=== PATIENT | female | born 1965 | race Caucasian/White ===

== ENCOUNTER → 2020-10-23 10:46 | Outpatient (CLI) | payer OTHER, SELFPAY ==
[2020-10-23 12:42] LABS: Vitamin D,25 Hydroxy 25.6 ng/mL
[2020-10-23 12:44] LABS: AST(SGOT) 16 U/L (15-37); Alanine Aminotransfer ALT/SGPT 23 U/L (13-56); Anion Gap 4 (5-15); BUN 10 mg/dL (7-18); Calcium,Total 8.7 mg/dL (8.5-10.1); Chloride 107 mmol/L (98-107); Cholesterol 206 mg/dL (200); Creatinine, Serum 0.71 mg/dL (0.55-1.02); EST Glomerular Filtration Rate 90 mL/min (>60); Est Glom Filt Rate - Afr Amer 109 mL/min (>60); Glucose 82 mg/dL (74-106); High Density Lipoprotein 62 mg/dL; Potassium 3.8 mmol/L (3.5-5.1); Sodium Level 139 mmol/L (136-145); Triglycerides 86 mg/dL; Very Low Density Lipoprotein 17 mg/dL (5-40)
== END ==
PROVIDERS: PCP Family Medicine; Referring Provider Family Medicine; Visit Provider Family Medicine
DX: E78.00 Pure hypercholesterolemia, unspecified (principal); E55.9 Vitamin D deficiency, unspecified
CPT/HCPCS: 36415; 80048; 80061; 82306; 84450; 84460

== ENCOUNTER → 2020-11-11 15:13 | Outpatient (CLI) | payer OTHER, SELFPAY ==
--- NOTE | 2020-11-11 15:16 | BI_ITS ---
MAMMOGRAPHY - BILATERAL SCREENING 3-D TOMOSYNTHESIS REASON FOR EXAM: Female, 55 years old. Routine screening PERTINENT HISTORY: Aunt with breast cancer.. TECHNIQUE: 2-D mammograms and 3-D Tomosynthesis of the breast (s) were performed. CAD was performed. COMPARISON: 06/25/2016 FINDINGS: The breast composition is heterogeneously dense that can obscure small breast masses. Scattered benign calcifications are seen. No dense spiculated masses or suspicious microcalcifications are identified. No architectural distortion is identified. There is no skin thickening or retraction. There has been no significant change since the prior study. BI/SCREENING MAMM (CAD), BILAT IMPRESSION: No mammographic signs of malignancy. Routine yearly mammograms recommended. ASSESSMENT CATEGORY: BIRADS Category 2: Benign. A letter regarding these results will be sent to the patient by the facility within 30 days. FOLLOW UP RECOMMENDATION: Yearly follow up mammogram recommended. (A) Approximately 10% of breast cancers are not detected by mammography. A normal mammogram should not delay biopsy of a clinically suspicious abnormality. Electronically Signed: Chucho Lance MD at 7:48 EDT , Service support ,
--- NOTE | 2020-11-11 15:21 | BD_ITS ---
STUDY: DUAL ENERGY X-RAY ABSORPTIOMETRY / DXA REASON FOR EXAM: Female, 55 years old. [id number] TECHNIQUE: Bone Mineral Density (BMD) measurements of lumbar spine and bilateral hips were obtained. COMPARISON: 05/14/2014 FINDINGS: Lumbar Spine (L1-L4): g/cm2 (0.829) / T-score (-3.1) / Z-score (-2.1) Findings are suggestive of osteoporosis with a high fracture risk. Left Femur Total: g/cm2 (0.825) / T-score (-1.4) / Z-score (-0.7) Left Femoral Neck: g/cm2 (0.817) / T-score (-1.6) / Z-score (-0.5) Right Femur Total: g/cm2 (0.811) / T-score (-1.6) / Z-score (-0.8) Right Femoral Neck: g/cm2 (0.827) / T-score (-1.5) / Z-score (-0.4) BD/Dexa Bone Density Study IMPRESSION: The patient is considered osteoporotic as outlined below according to World [employer] Organization (WHO) criteria with a high fracture risk. There has been worsening of bone density since the previous examination. Reference Information: The T-score is the number of standard deviations above or below the standard which is normal for young adults at their peak bone mineral density. The World Health Organization (WHO) interprets the T-scores as follows: Above -1 Normal bone density Between -1 and -2.5 Osteopenia Equal to / or below -2.5 Osteoporosis As a practical clinical guideline, osteopenia may be graded as follows: Mild -1 through -1.5 Moderate -1.6 through -2.0 Severe -2.1 through -2.4 The Z-score is the number of standard deviations above or below age-matched controls. A Z-score of less than -1.5 would be considered abnormal. References: 1. NIH Osteoporosis and Related Bone Diseases www osteo.org 2. International Society for Clinical Densitometry www iscd.org 3. National Osteoporosis Foundation www nof.org Electronically Signed: Mir Gaines MD at 8:48 EDT Tel , Service support ,
== END ==
PROVIDERS: PCP Family Medicine; Referring Provider Family Medicine; Visit Provider Family Medicine
DX: Z00.00 Encounter for general adult medical examination without abnormal findings (principal); N95.9 Unspecified menopausal and perimenopausal disorder; Z12.31 Encounter for screening mammogram for malignant neoplasm of breast
CPT/HCPCS: 77067; 77080

== ENCOUNTER → 2021-05-26 | Outpatient (CLI) | payer OTHER, SELFPAY ==
[2021-05-28 12:50] LABS: HPV Reflexed? NOT INDICATED
== END | disposition home or self-care (01) ==
LOC: LABSPEC 10:27
PROVIDERS: PCP Family Medicine; Referring Provider Family Medicine; Visit Provider Family Medicine
DX: Z12.4 Encounter for screening for malignant neoplasm of cervix (principal)
CPT/HCPCS: 88175; G0145

== ENCOUNTER → 2022-04-13 | Outpatient (CLI) | payer BC, SELFPAY ==
[2022-04-13 13:17] LABS: Vitamin D,25 Hydroxy 32.4 ng/mL
[2022-04-13 13:18] LABS: Cholesterol 211 mg/dL (200); High Density Lipoprotein 63 mg/dL; Triglycerides 66 mg/dL; Very Low Density Lipoprotein 13 mg/dL (5-40)
== END | disposition home or self-care (01) ==
LOC: MFPLAB 10:25
PROVIDERS: PCP Family Medicine; Referring Provider Family Medicine; Visit Provider Family Medicine
DX: E78.00 Pure hypercholesterolemia, unspecified (principal); E55.9 Vitamin D deficiency, unspecified
CPT/HCPCS: 36415; 80061; 82306

== ENCOUNTER 2022-05-27 14:30 | Outpatient (CLI) | payer BC, SELFPAY ==
--- NOTE | 2022-05-27 14:33 | BI_ITS ---
MAMMOGRAPHY - BILATERAL SCREENING REASON FOR EXAM: Female, 57 years old. Routine annual screening examination. PERTINENT HISTORY: Aunt with breast cancer. TECHNIQUE: Digital bilateral breast adenike (3D mammographic acquisition) in the CC and MLO projections. 2-D mediolateral oblique (MLO) and craniocaudad (CC) views of both breasts were obtained. CAD: Full Field Digital Mammography with Computer Added Detection was performed. COMPARISON: Comparison is made with prior examination dated 11/11/2020 and 06/25/2016. FINDINGS: Breast Composition: The breasts are heterogeneously dense, which may obscure small masses. 2 well-defined nodular densities are seen in the mid medial aspect of the right breast. The larger measures 6.8 mm x 5.8 mm. Correlation with ultrasound is recommended. No other significant abnormalities are identified. BI/SCRN MAMM (CAD)W/ADENIKE BILAT IMPRESSION: 2 well-defined nodular densities are seen in the mid medial aspect of the right breast. Correlation with ultrasound is recommended. ASSESSMENT CATEGORY: BIRADS Category 0: Incomplete. Need additional imaging evaluation. A letter regarding these results will be sent to the patient by the facility within 30 days. Approximately 10% of breast cancers are not detected by mammography. A normal mammogram should not delay biopsy of a clinically suspicious abnormality. [id number] Electronically Signed: Destin Coffman MD at 8:34 EST ,
== END 2022-05-27 23:59 | disposition home or self-care (01) ==
LOC: OPBI 14:31
PROVIDERS: PCP Family Medicine; Referring Provider Family Medicine; Visit Provider Family Medicine
DX: Z00.00 Encounter for general adult medical examination without abnormal findings (principal); Z80.3 Family history of malignant neoplasm of breast; Z12.31 Encounter for screening mammogram for malignant neoplasm of breast
CPT/HCPCS: 77063; 77067

== ENCOUNTER → 2022-06-03 | Outpatient (CLI) | payer BC, SELFPAY ==
--- NOTE | 2022-06-03 14:54 | US_ITS ---
STUDY: ULTRASOUND BREAST - RIGHT REASON FOR EXAM: Female, 57 years old. Abnormal screening mammogram. TECHNIQUE: Axial and longitudinal images of the RIGHT breast were performed with a high resolution ultrasound transducer. # OF IMAGES: 10 COMPARISON: Comparison is made with prior mammogram dated 05/27/2022. FINDINGS: RIGHT Breast: The mid medial aspect of the right breast was examined with ultrasound. There is an 8 mm x 8 mm x 5 mm cyst. There is also evidence of a 7 mm x 5 mm x 4 mm cyst at the 4 o''clock position of the breast. US/Breast Limited Unilateral IMPRESSION: Mammographic findings correspond to 2 adjacent subcentimeter cysts. ASSESSMENT CATEGORY: BIRADS Category 2: Benign. A letter regarding these results will be sent to the patient by the facility within 30 days. Electronically Signed: Destin Coffman MD at 12:25 EST ,
== END | disposition home or self-care (01) ==
LOC: OPUS 14:52
PROVIDERS: PCP Family Medicine; Visit Provider Family Medicine
DX: R92.8 Other abnormal and inconclusive findings on diagnostic imaging of breast (principal)
CPT/HCPCS: 76642

== ENCOUNTER → 2023-08-16 | Outpatient (CLI) | payer BC, SELFPAY ==
--- NOTE | 2023-08-16 07:58 | BI_ITS ---
MAMMOGRAPHY - BILATERAL SCREENING REASON FOR EXAM: Female, 58 years old. Routine annual screening examination. PERTINENT HISTORY: Aunt with breast cancer. TECHNIQUE: Digital bilateral breast adenike (3D mammographic acquisition) in the CC and MLO projections. 2-D mediolateral oblique (MLO) and craniocaudad (CC) views of both breasts were obtained. CAD: Full Field Digital Mammography with Computer Added Detection was performed. COMPARISON: Comparison is made with prior study dated May 27, 2022 and November 11, 2020. FINDINGS: Breast Composition: The breasts are heterogeneously dense, which may obscure small masses. There are no dominant masses or suspicious calcifications. No other significant abnormalities are identified. There has been no significant change since the prior study. BI/SCRN MAMM (CAD)W/ADENIKE BILAT IMPRESSION: Stable bilateral screening mammogram. Yearly follow-up mammogram recommended. (A) ASSESSMENT CATEGORY: BIRADS Category 1: Negative. A letter regarding these results will be sent to the patient by the facility within 30 days. Approximately 10% of breast cancers are not detected by mammography. A normal mammogram should not delay biopsy of a clinically suspicious abnormality. [id number] Electronically Signed: Destin Coffman MD at 9:12 EST ,
== END | disposition home or self-care (01) ==
LOC: OPBI 07:58
PROVIDERS: PCP Family Medicine; Referring Provider Family Medicine; Visit Provider Family Medicine
DX: Z12.31 Encounter for screening mammogram for malignant neoplasm of breast (principal); Z80.3 Family history of malignant neoplasm of breast
CPT/HCPCS: 77063; 77067

== ENCOUNTER 2023-12-06 05:33 | Day surgery (SDC) | payer BC, SELFPAY ==
--- NOTE | 2023-12-06 | COLBX_PTH ---
PATIENT: ZHANE DUNN LOC: EN U#:[id number] AGE/SX: 58/F ROOM: RE12/06/[address]: Dr. Jadiel Cook MD : 1965 BED: DIS: 12/06/2023 SPEC #: [id number] RECD: 12/06/23 12:55 STATUS: DAVID HAYES #: [id number] MICKY: 12/06/23 00:[address]: Jadiel Cook DEPT: SURGICAL PATHOLOGY RECD BY: Bernardo Lassiter ENTERED: 12/06/23 12:55 SP TYPE: COLON BX OTHR DR: Dr. Anisha Castillo MD Tissues: Rectum, NOS Procedures: Surgery Specimen Level IV HEADER OPERATION: Colonoscopy, biopsy PRE-OP DIAGNOSIS: Encounter for screening for malignant neoplasm of colon TISSUE SUBMITTED: Proximal rectum polyps x3 MICROSCOPIC DIAGNOSIS Rectal polyps, biopsy: Fragments of hyperplastic polyp. AM/mr 12/07/2023 MICROSCOPIC DESCRIPTION Slides are reviewed. GROSS DESCRIPTION Received in fixative is one container labeled with the patient's name and designated Proximal rectum polyp x3. The specimen consists of multiple irregular fragments of light mallory soft tissue that in aggregate measure 1.0 x 0.4 x 0.1 cm. The specimen is totally submitted in one cassette. ENZO/ 12/06/2023 TC:5 CPT:84238
[2023-12-06 06:01] VITALS: BP 110/71; PULSE 78; RESP 16; TEMP 36.3; O2SAT 99; BMI 21.9
[2023-12-06] MEDS: Lactated Ringers 1,000 ML 15 ML IV (06:04)
--- NOTE | 2023-12-06 06:21 | HP.PCM_ITS ---
HPI - General General Date of Service: 12/06/23 Chief Complaint: Screening for intestinal cancer HPI Narrative ZHANE DUNN, is a 58 F who presents who presents via open access today. Previous colonoscopy was 2013. She is asymptomatic. She otherwise enjoys good health. No family history of colon cancer or colon polyps. She denies any bright red blood per rectum or melena. COUNT INCLUDES THE [facility] Medical History (Updated 11/30/23 @ 13:59 by Bernie Okeefe) Wears contact lenses Wears glasses Anxiety Depression Non-smoker Hypercholesterolemia Panic disorder Osteoporosis Home Medications ?Medication ?Instructions ?Recorded ?Last Taken ?Type bupropion HCl 150 mg 24 hr tablet, 300 mg PO QAM 11/28/23 Unknown History extended release calcium carbonate 500 mg-vitamin 2 tab PO BID 11/28/23 Unknown History D3 200 unit-vitamin K2 90 mcg tablet coenzyme Q10 10 mg capsule 10 mg PO ONCE 11/28/23 Unknown History cyanocobalamin (vitamin B-12) 3 ml PO DAILY 11/28/23 Unknown History 1,000 mcg/mL oral drops (Vitamin B-12) Lactobacillus acidophilus 10 10,000 mmu cells PO DAILY 11/30/23 Unknown History billion cell capsule (Probacap) magnesium 200 mg tablet 400 mg PO QHS 11/30/23 Unknown History quercetin 500 mg capsule 500 mg PO DAILY 11/30/23 Unknown History Allergy/AdvReac Type Severity Reaction Status Date / Time No Known Allergies Allergy Verified 12/06/23 06:01 Family History (Updated 11/28/23 @ 08:30 by Jelly Schofield) Mother Diabetes Hypertension Father Hypertension Surgical History (Updated 11/30/23 @ 13:59 by Bernie Okeefe) History of wisdom tooth extraction Hx of colonoscopy Social History (Updated 11/28/23 @ 08:31 by Jelly Schofield) household members: spouse current occupational status: employed Smoking Status: Never smoker alcohol intake: current alcohol intake frequency: holidays/special occasions only substance use type: does not use ROS Constitutional Constitutional: Reports systems reviewed and no addt'l complaints, except as documented Cardiovascular Cardiovascular: Denies chest pain Respiratory/Chest Respiratory/Chest: Denies shortness of breath at rest Gastrointestinal Gastrointestinal: Denies abdominal pain, change in bowel habits, hematochezia or melena Vital Signs Vital Signs Vital Signs: 12/06/23 06:01 12/06/23 06:01 Temperature 97.4 F L Temperature Source Temporal Pulse Rate 78 Respiratory Rate 16 Respiratory Pattern Normal Blood Pressure 110/71 Blood Pressure Mean 84 Blood Pressure Source Monitor Blood Pressure Position Semi-Fowlers Blood Pressure Location Left Arm Pulse Ox 99 Oxygen Delivery Method Room Air Weight Weight: 136 lb 0.403 oz Body Mass Index (BMI) 21.9 Physical Exam Const alert, oriented x3 and no apparent distress General Appearance: cooperative and comfortable Eyes General Eye: normal appearance of both eyes Neck General: normal visual inspection Chest inspection of chest normal Resp Effort and Inspection: able to speak in complete sentences and symmetric chest movement Auscultation: clear to auscultation bilaterally Cardio regular rate and regular rhythm GI soft to palpation, non-tender and non-distended Extremity no calf tenderness Neuro oriented x3 Psych thought process normal Assessment & Plan Assessment/Plan (1) Encounter for screening for malignant neoplasm of colon: PLAN: The patient presents via an open access today for screening colonoscopy. She is aware of the technique, benefit, risk, alternatives. She has had an opportunity to ask and have questions answered. We will proceed as noted. Jadiel Cook M.D., F.A.C.S.
[2023-12-06 07:10] VITALS: BP 102/64; BP 110/71; PULSE 74; RESP 18; TEMP 36.1; O2SAT 97
--- NOTE | 2023-12-06 07:10 | OP.CCLET_ITS ---
12/06/2023 Anisha Castillo [address] [place] [address] Re : Colonoscopy procedure for Bonny Leonardo Dear Dr. Castillo This procedure was performed on Wednesday, December 06, 2023. My impressions and recommendations are as follows: Impressions : - Non-thrombosed internal hemorrhoids and internal hemorrhoids that prolapse with straining, but spontaneously regress to the resting position (Grade II) found on digital rectal exam. - Three 2 to 3 mm polyps in the proximal rectum, removed with a cold biopsy forceps. Resected and retrieved. - Tortuous colon. Recommendations : - Discharge patient to home. - Resume previous diet. - Continue present medications. - Repeat colonoscopy in 5 years for surveillance based on pathology results. - Telephone my office for pathology results in 1 week. My findings are described in the full procedure note, which is enclosed. If I can be of further assistance, please feel free to contact me at Doctor phone number(s): Work: . Sincerely, Jadiel Cook MD 12/06/2023 7:09:11 AM This report has been signed electronically.
--- NOTE | 2023-12-06 07:10 | OP.COLON_ITS ---
Patient Name: Bonny Leonardo Procedure Date: 12/06/2023 6:28 AM Date of : 1965 Age: 58 Procedure: Colonoscopy Indications: Screening for colorectal malignant neoplasm Providers: Jadiel Cook MD Referring MD: Anisha Castillo Medicines: See the Anesthesia note for documentation of the administered medications Patient Profile: Last Colonoscopy: 2013. Complications: No immediate complications. Procedure: Pre-Anesthesia Assessment: - Prior to the procedure, a History and Physical was performed, and patient medications and allergies were reviewed. The patient's tolerance of previous anesthesia was also reviewed. The risks and benefits of the procedure and the sedation options and risks were discussed with the patient. All questions were answered, and informed consent was obtained. Prior Anticoagulants: The patient has taken no anticoagulant or antiplatelet agents. ASA Grade Assessment: I - A normal, healthy patient. After reviewing the risks and benefits, the patient was deemed in satisfactory condition to undergo the procedure. After I obtained informed consent, the scope was passed under direct vision. Throughout the procedure, the patient's blood pressure, pulse, and oxygen saturations were monitored continuously. The adult colonoscope was introduced through the anus and advanced to the cecum, identified by appendiceal orifice and ileocecal valve. The colonoscopy was technically difficult and complex due to a tortuous colon. The patient tolerated the procedure well. The quality of the bowel preparation was good. The ileocecal valve and the appendiceal orifice were photographed. Scope In: 6:40:23 AM Scope Withdrawal Time 0 hours 7 minutes 35 seconds Scope Out: 7:04:48 AM Total Procedure Duration Time 0 hours 24 minutes 25 seconds Findings: The digital rectal exam findings include non-thrombosed internal hemorrhoids and internal hemorrhoids that prolapse with straining, but spontaneously regress to the resting position (Grade II). Three sessile polyps were found in the proximal rectum. The polyps were 2 to 3 mm in size. These polyps were removed with a cold biopsy forceps. Resection and retrieval were complete. The colon (entire examined portion) was significantly tortuous. Advancing the scope required changing the patient to a supine position and using manual pressure. Impression: - Non-thrombosed internal hemorrhoids and internal hemorrhoids that prolapse with straining, but spontaneously regress to the resting position (Grade II) found on digital rectal exam. - Three 2 to 3 mm polyps in the proximal rectum, removed with a cold biopsy forceps. Resected and retrieved. - Tortuous colon. Recommendation: - Discharge patient to home. - Resume previous diet. - Continue present medications. - Repeat colonoscopy in 5 years for surveillance based on pathology results. - Telephone my office for pathology results in 1 week. Procedure Code(s): --- Professional --- 83076, Colonoscopy, flexible; with biopsy, single or multiple Diagnosis Code(s): --- Professional --- Z12.11, Encounter for screening for malignant neoplasm of colon K64.1, Second degree hemorrhoids D12.8, Benign neoplasm of rectum Q43.8, Other specified congenital malformations of intestine CPT copyright 2021 [employer]. All rights reserved. The codes documented in this report are preliminary and upon general utility worker review may be revised to meet current compliance requirements. Jadiel Cook MD 12/06/2023 7:09:11 AM This report has been signed electronically. Number of Addenda: 0 Note Initiated On: 12/06/2023 6:28 AM
[2023-12-06 07:15] VITALS: BP 104/75; BP 110/71; PULSE 74; RESP 16; O2SAT 98
[2023-12-06 07:20] VITALS: BP 106/76; BP 110/71; PULSE 72; RESP 18; O2SAT 99
[2023-12-06 07:23] VITALS: BP 110/71; BP 110/76; PULSE 78; RESP 18; TEMP 36.4; O2SAT 99
[2023-12-06 07:51] VITALS: BP 110/71
== END 2023-12-06 08:00 | disposition home or self-care (01) ==
LOC: EN 05:33 → AC 05:34
PROVIDERS: PCP Family Medicine; Referring Provider Family Medicine; Visit Provider Surgery
PROC: 0DJD8ZZ Inspection of Lower Intestinal Tract, Via Natural or Artificial Opening Endoscopic (ICD-10-PCS; CPT 45378; principal; 2023-12-06 06:25)
DX: Z12.11 Encounter for screening for malignant neoplasm of colon (principal); E78.00 Pure hypercholesterolemia, unspecified; K64.1 Second degree hemorrhoids; Q43.8 Other specified congenital malformations of intestine; K62.1 Rectal polyp; F41.9 Anxiety disorder, unspecified; F32.A Depression, unspecified; Z79.899 Other long term (current) drug therapy
CPT/HCPCS: 45380; 88305; J7120; J2405

== ENCOUNTER → 2025-04-19 | Outpatient (CLI) | payer BC, SELFPAY ==
--- NOTE | 2025-04-19 16:21 | MRI_ITS ---
PROCEDURE: LOWER EXT JOINT ONLY (ROUTINE) 04/19/2025 REASON FOR EXAM: PAIN RIGHT KNEE TECHNIQUE: Procedure Code: MRILEJ Modality: MR Procedure: LOWER EXT JOINT ONLY (ROUTINE) T1, T2, PD, multiplanar and multisequence images were obtained of the right knee without IV contrast administration. COMPARISON: COMPARISON : None FINDINGS: Bone Marrow: There is bone marrow edema in the posterior central tibia, deep to the PCL insertion. There is no visible displaced fracture. Cruciate ligaments: The anterior cruciate ligament shows edema and attenuation without laxity, grade 2 sprain. The posterior cruciate appears intact. Collateral ligaments: The medial collateral ligament appears intact. The lateral collateral ligaments appear intact. Menisci: There is no visible meniscus tear in the medial or lateral meniscus. Effusion: There is a moderate joint effusion. There is no Suarez's cyst. Cartilage: A fissure is noted in the central portion of the lateral patellar facet. 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 Soft Tissues: There is no soft tissue mass or cyst. Ligaments and Tendons: The distal quadriceps and patellar tendons appear intact. MRI/Lower Ext Joint Only (Routine) IMPRESSION: There is bone marrow edema in the posterior central tibia, deep to the PCL inse rtion. The anterior cruciate ligament shows edema and attenuation without laxity, grad e 2 sprain. T Here is a moderate joint effusion. A fissure is noted in the central portion of the lateral patellar facet. 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 Reading Location: [facility]
--- OUTSIDE RECORDS SUMMARY | 2025-04-19 16:45 | XMS RPT_ITS | CCD ---
Author Organization [facility] CliniSyri Care Team Providers Care Supervisor Wood Room Name Role Phone Anisha Castillo Referring Unavailable Jolliff, Anisha S Primary Care Unavailable Jadiel Cook Consulting Unavailable CeJadiel vargas Attending Unavailable CeJadiel vargas Attending Unavailable Jolliff, Anisha S Primary Care Unavailable Jolliff, Anisha S Referring Unavailable Jolliff, Anisha S Primary Care Unavailable Jolliff, Anisha S Attending Unavailable Jolliff, Anisha S Referring Unavailable Jolliff, Anisha S Primary Care Unavailable Jelly Schofield Attending Unavailable Problems Problem Classification Problem Date Documented Da te Episodic/Chronic Other screening for suspected conditions (not mental disorders or infectious disease) (3 sources) Encounter for screening for malignant neoplasm of colon; Translations: [Encounter for screening mammogram for malignant neoplasm of breast] Onset: 08-19-2023 Episodic Results Test Name Value Interpretation Reference Range Facil ity Colonoscopy Reporton 024 Colonoscopy Report [facility] Medical Records Department [address] [place] [address] Colonoscopy Report MR#: [id number] Acct: [id number] Name: BONNY LEONARDO Rep #: [id number] : 1965 58 From: Jadiel Cook MD PCP: Dr. Anisha Castillo MD Status:[facility] Patient Name: Bonny Leonardo Procedure Date: 12/06/2023 6:28 AM Date of : 1965 Age: 58 Procedure: Colonoscopy Indications: Screening for colorectal malignant neoplasm Providers: Jadiel Cook MD Referring MD: Anisha Castillo Medicines: See the Anesthesia note for documentation of the administered medications Patient Profile: Last Colonoscopy: 2013. Complications: No immediate complications. Procedure: Pre-Anesthesia Assessment: - Prior to the procedure, a History and Physical was performed, and patient medications and allergies were reviewed. The patient's tolerance of previous anesthesia was also reviewed. The risks and benefits of the procedure and the sedation options and risks were discussed with the patient. All questions were answered, and informed consent was obtained. Prior Anticoagulants: The patient has taken no anticoagulant or antiplatelet agents. ASA Grade Assessment: I - A normal, healthy patient. After reviewing the risks and benefits, the patient was deemed in satisfactory condition to undergo the procedure. After I obtained informed consent, the scope was passed under direct vision. Throughout the procedure, the patient's blood pressure, pulse, and oxygen saturations were monitored continuously. The adult colonoscope was introduced through the anus and advanced to the cecum, identified by appendiceal orifice and ileocecal valve. The colonoscopy was technically difficult and complex due to a tortuous colon. The patient tolerated the procedure well. The quality of the bowel preparation was good. The ileocecal valve and the appendiceal orifice were photographed. Scope In: 6:40:23 AM Scope Withdrawal Time 0 hours 7 minutes 35 seconds Scope Out: 7:04:48 AM Total Procedure Duration Time 0 hours 24 minutes 25 seconds Findings: The digital rectal exam findings include non-thrombosed internal hemorrhoids and internal hemorrhoids that prolapse with straining, but spontaneously regress to the resting position (Grade II). Three sessile polyps were found in the proximal rectum. The polyps were 2 to 3 mm in size. These polyps were removed with a cold biopsy forceps. Resection and retrieval were complete. The colon (entire examined portion) was significantly tortuous. Advancing the scope required changing the patient to a supine position and using manual pressure. Impression: - Non-thrombosed internal hemorrhoids and internal hemorrhoids that prolapse with straining, but spontaneously regress to the resting position (Grade II) found on digital rectal exam. - Three 2 to 3 mm polyps in the proximal rectum, removed with a cold biopsy forceps. Resected and retrieved. - Tortuous colon. Recommendation: - Discharge patient to home. - Resume previous diet. - Continue present medications. - Repeat colonoscopy in 5 years for surveillance based on pathology results. - Telephone my office for pathology results in 1 week. Procedure Code(s): --- Professional --- 72865, Colonoscopy, flexible; with biopsy, single or multiple Diagnosis Code(s): --- Professional --- Z12.11, Encounter for screening for malignant neoplasm of colon K64.1, Second degree hemorrhoids D12.8, Benign neoplasm of rectum Q43.8, Other specified congenital malformations of intestine CPT copyright 2021 [employer]. All rights reserved. The codes documented in this report are preliminary and upon biodiesel engineering manager review may be revised to meet current compliance requirements. Jadiel Cook MD 12/06/2023 7:09:11 AM This report has been signed electronically. Number of Addenda: 0 Note Initiated On: 12/06/2023 6:28 AM 12/06/23708 Date Jadiel Cook MD Cosigner Signature: Date (if indicated) CC: Dr. Anisha Castillo MD; Dr. Jadiel Cook MD Date Dictated: 12/06/23627 Date Transcribed: Accounting Office Manager: KATIE Signed Normal [facility] Surgery Specimen Level Cali 12-06-2023 Surgery Specimen Level IV -------- Patient Age/Sex Location Account Attending Physician -------- BONNY LEONARDO 58/F EN [id number] Dr. Jadiel Cook MD -------- Specimen: [id number] Received: 12/06/23-1254 Status: DAVID Valenzuela Num: [id number] Spec Type: COLON BX Subm Dr: Dr. Jadiel oCok MD HEADER OPERATION: Colonoscopy, biopsy PRE-OP DIAGNOSIS: Encounter for screening for malignant neoplasm of colon TISSUE SUBMITTED: Proximal rectum polyps x3 -------- MICROSCOPIC DIAGNOSIS Rectal polyps, biopsy: Fragments of hyperplastic polyp. / 12/07/2023 MICROSCOPIC DESCRIPTION Slides are reviewed. GROSS DESCRIPTION Received in fixative is one container labeled with the patient's name and designated Proximal rectum polyp x3. The specimen consists of multiple irregular fragments of light mallory soft tissue that in aggregate measure 1.0 x 0.4 x 0.1 cm. The specimen is totally submitted in one cassette. / 12/06/2023 TC:5 CPT:69284 -------- Patient Age/Sex Location Account Attending Physician -------- BONNY LEONARDO 58/F EN [id number] Dr. Jadiel Cook MD -------- Signed (signature on file) Dr. Nuno Tian DO 12/07/23 1130 -------- Normal [facility] Comment on above: Performed By: #### P SUIV #### [facility] [address] [place], [address] SCRN MAMM (CAD)W/ADENIKE BILATo n 08-16-2023 SCRN MAMM (CAD)W/ADENIKE BILAT [facility] Imaging Services [address] [place] [address] SCRN MAMM (CAD)W/ADENIKE BILAT MR#: [id number] Acct: [id number] Name: BONNY LEONARDO Rep #: [id number] : 1965 F 58 From: Destin villar MD PCP: Dr. Anisha Castillo MD Status: REG CLI Study: SCRN MAMM (CAD)W/ADENIKE BILAT Date of Exam: 07/29 Exam# [id number] Ordering Dr: Anisha Castillo MD [id number] MAMMOGRAPHY - BILATERAL SCREENING REASON FOR EXAM: Female, 58 years old. Routine annual screening examination. PERTINENT HISTORY: Aunt with breast cancer. TECHNIQUE: Digital bilateral breast adenike (3D mammographic acquisition) in the CC and MLO projections. 2-D mediolateral oblique (MLO) and craniocaudad (CC) views of both breasts were obtained. CAD: Full Field Digital Mammography with Computer Added Detection was performed. COMPARISON: Comparison is made with prior study dated May 27, 2022 and November 11, 2020. FINDINGS: Breast Composition: The breasts are heterogeneously dense, which may obscure small masses. There are no dominant masses or suspicious calcifications. No other significant abnormalities are identified. There has been no significant change since the prior study. BI/SCRN MAMM (CAD)W/ADENIKE BILAT IMPRESSION: Stable bilateral screening mammogram. Yearly follow-up mammogram recommended. (A) ASSESSMENT CATEGORY: BIRADS Category 1: Negative. A letter regarding these results will be sent to the patient by the facility within 30 days. Approximately 10% of breast cancers are not detected by mammography. A normal mammogram should not delay biopsy of a clinically suspicious abnormality. [id number] Electronically Signed: Destin Coffman MD at 9:12 EST , CC: Dr. Anisha Castillo MD Accounting Office Manager: Signed Normal [facility] Basophil percentageon 2021 Cholesterol [Mass/Vol] 211 mg/dL <200 [facility] Work Phone: Comment on above: <200 mg/dL Desirable 200-240 mg/dL Borderline >240 mg/dL High Risk Triglyceride [Mass/Vol] 66 mg/dL <199 [facility] Work Phone: Comment on above: The drugs N-Acetylcy steine and Metamizole may falsely depress this assay.Serum Triglycerides Reference Interval Normal <150 mg/dL Borderline high 150 - 199 mg/dL High 200 - 499 mg/dL Very High > or = 500 mg/dL No Panel Informationon 04-13 Vitamin D 25-Hydroxy 32.4 ng/mL [facility] Work Phone: Comment on above: Vitamin D 25(OH) Sta tus Range Deficiency <20 ng/mL (50nmol/L) Insufficiency 20 - 30 ng/mL (50 - 75 nmol/L) Sufficiency 30 - 100 ng/mL (75 - 250 nmol/L) Toxicity >100 ng/mL (>250 nmol/L) Serum or plasma cholesterol in HDL measurement (mass/volume)on 04-13-2022 Cholesterol in HDL [Mass/Vol] 63 mg/dL >40 [facility] Work Phone: Comment on above: The drugs N-Acetylcy steine and Metamizole may falsely depress this assay. Reference Range HDL <40 mg/dL Low HDL Cholesterol HDL >or= 60 mg/dL High HDL Cholesterol Serum or plasma cholesterol in VLDL measurement (mass/volume)on 04-13-2022 Cholesterol in VLDL [Mass/Vol] 13 mg/dL 5-40 [facility] Work Phone: Serum or plasma low density lipoprotein (LDL) cholesterol measurement (mass/volume)on 04-13-2022 Cholesterol in LDL [Mass/Vol] 135 mg/dL 0-130 [facility] Work Phone: Encounters Encounter Date Encounter Type Care Provider Facility Start: 12-06-2023 End: 12-06-2023 ambulatory Jadiel Cook Facility:[facility] Start: 11-28-2023 ambulatory Anisha S Jolliff Facility: [facility] Start: 08-16-2023 End: 08-16-2023 ambulatory [facility] Work Phone: Start: 08-16-2023 End: 08-16-2023 Patient encounter procedure [facility] Work Phone: Start: 08-16-2023 End: 08-16-2023 ambulatory Anisha Castillo Facility:[facility] Start: 06-03-2022 End: 06-03-2022 ambulatory [facility] Work Phone: Start: 06-03-2022 End: 06-03-2022 Patient encounter procedure [facility] Ul[facility] Start: 05-27-2022 End: 05-27-2022 ambulatory [facility] Work Phone: Start: 05-27-2022 End: 05-27-2022 Patient encounter procedure [facility] Start: 04-13-2022 End: 04-13-2022 Patient encounter procedure [facility], [facility] Procedures Date Procedure Procedure Detail Performing Clinician Start: 08-16-2023 Screening mammography Start: 06-03-2022 Ultrasonography of breast Start: 05-27-2022 Screening mammography Plan of Treatment Date Care Activity Detail Author Start: 05-27-2022 Screening mammography SCRN KRISTIN M (CAD)W/ADENIKE BILAT [facility] Work Phone: Payers Date Payer Category Payer Self-pay [id number] 2023 Unknown [id number] Unknown [employer] [id number] Unknown [employer] [id number] Unknown [id number] Unknown [id number] Unknown [id number] Unknown [id number] Social History Date Type Detail [facility] Work Phone: Start: 1965 Sex Assigned At Female W [facility] Clinical Note 12-06-2023 Note Date & Type Note Facility 12-06-2023 Note [facility] Medical Records Department [address] [place] [address] History Physical Exam 12/06/23620 MR#: [id number] Acct: [id number] Name: BONNY LEONARDO Rep #: [id number] : 1965 58 From: Jadiel Cook MD PCP: Dr. Anisha Castillo MD Status:REG [facility] Location: [place] [address] HPI - General General Date of Service: 12/06/23 Chief Complaint: Screening for intestinal cancer HPI Narrative BONNY LEONARDO, is a 58 F who presents who presents via open access today. Previous colonoscopy was 2013. She is asymptomatic. She otherwise enjoys good health. No family history of colon cancer or colon polyps. She denies any bright red blood per rectum or melena. [facility] Medical History (Updated 11/30/23 @ 13:59 by Bernie Okeefe) Wears contact lenses Wears glasses Anxiety Depression Non-smoker Hypercholesterolemia Panic disorder Osteoporosis Home Medications ???Medication ???Instructions ???Recorded ???Last Taken ???Type bupropion HCl 150 mg 24 hr tablet, 300 mg PO QAM 11/28/23 Unknown History extended release calcium carbonate 500 mg-vitamin 2 tab PO BID 11/28/23 Unknown History D3 200 unit-vitamin K2 90 mcg tablet coenzyme Q10 10 mg capsule 10 mg PO ONCE 11/28/23 Unknown History cyanocobalamin (vitamin B-12) 3 ml PO DAILY 11/28/23 Unknown History 1,000 mcg/mL oral drops (Vitamin B-12) Lactobacillus acidophilus 10 10,000 mmu cells PO DAILY 11/30/23 Unknown History billion cell capsule (Probacap) magnesium 200 mg tablet 400 mg PO QHS 11/30/23 Unknown History quercetin 500 mg capsule 500 mg PO DAILY 11/30/23 Unknown History Allergy/AdvReac Type Severity Reaction Status Date / Time No Known Allergies Allergy Verified 12/06/23 06:01 Family History (Updated 11/28/23 @ 08:30 by Jelly Schofield) Mother Diabetes Hypertension Father Hypertension Surgical History (Updated 11/30/23 @ 13:59 by Bernie Okeefe) History of wisdom tooth extraction Hx of colonoscopy Social History (Updated 11/28/23 @ 08:31 by Jelly Schofield) household members: spouse current occupational status: employed Smoking Status: Never smoker alcohol intake: current alcohol intake frequency: holidays/special occasions only substance use type: does not use ROS Constitutional Constitutional: Reports systems reviewed and no addt'l complaints, except as documented Cardiovascular Cardiovascular: Denies chest pain Respiratory/Chest Respiratory/Chest: Denies shortness of breath at rest Gastrointestinal Gastrointestinal: Denies abdominal pain, change in bowel habits, hematochezia or melena Vital Signs Vital Signs Vital Signs: 12/06/23 06:01 12/06/23 06:01 Temperature 97.4 F L Temperature Source Temporal Pulse Rate 78 Respiratory Rate 16 Respiratory Pattern Normal Blood Pressure 110/71 Blood Pressure Mean 84 Blood Pressure Source Monitor Blood Pressure Position Semi-Fowlers Blood Pressure Location Left Arm Pulse Ox 99 Oxygen Delivery Method Room Air Weight Weight: 136 lb 0.403 oz Body Mass Index (BMI) 21.9 Physical Exam Const alert, oriented x3 and no apparent distress General Appearance: cooperative and comfortable Eyes General Eye: normal appearance of both eyes Neck General: normal visual inspection Chest inspection of chest normal Resp Effort and Inspection: able to speak in complete sentences and symmetric chest movement Auscultation: clear to auscultation bilaterally Cardio regular rate and regular rhythm GI soft to palpation, non-tender and non-distended Extremity no calf tenderness Neuro oriented x3 Psych thought process normal Assessment Plan Assessment/Plan (1) Encounter for screening for malignant neoplasm of colon: PLAN: The patient presents via an open access today for screening colonoscopy. She is aware of the technique, benefit, risk, alternatives. She has had an opportunity to ask and have questions answered. We will proceed as noted. Jadiel Cook M.D., F.A.C.S. 12/06/23 0625 Cosigner Signature (if applicable): CC: Dr. Anisha Castillo MD; Dr. Jadiel Cook MD Signed [facility] Evaluation note Note Date & Type Note Facility Evaluation note No assessment information availa ble [facility] Work Phone: Chief Complaint and Reason for Visit Chief Complaint SCREENING Chief Complaint SCREENING ABNORMAL MAMMO Summary Purpose Family History No Family History Records Found Advance Directives No Advanced Directives Records Found Additional Source Comments Goals (unrecognized section and content) Goals may be documented in a n alternate sectionGoals may be documented in an alternate sectionGoals may be documented in an alternate section Care Teams (unrecognized sec tion and content) Team Status: Active Member Role Status Dates Dr. Anisha Castillo MD Family Provider Active Dr. Anisha Castillo MD Primary Care Provider Active Team Status: Inactive Member Role Status Dates Dr. Anisha Castillo MD Primary Care Prov ider, Attending Provider, Referring Provider Active INFORMATION SOURCE (unrecogn ized section and content) DATE CREATED AUTHOR 12/20/2023 [facility] FOR RECORDS PERTAINING TO PATIENTS WHO ARE OR HAVE BEEN ENROLLED IN A CHEMICAL DEPENDENCY/SUBSTANCEABUSE PROGRAM, SOME INFORMATION MAY BE OMITTED. This clinical summary was aggregated from multiple sources. Caution should be exercised in using it in the provision of clinical care. This summary normalizes information from multiple sources, and as a consequence, information in this document may materially change the coding, format and clinical context of patient data. In addition, data may be omitted in some cases. CLINICAL DECISIONS SHOULD BE BASED ON THE PRIMARY CLINICAL RECORDS. [employer] [facility]. provides no warranty or guarantee of the accuracy or completeness of information in this document.
== END | disposition home or self-care (01) ==
LOC: OPMRI 16:17
PROVIDERS: PCP Physician Assistant Surgical; Referring Provider Physician Assistant Surgical; Visit Provider Physician Assistant Surgical
DX: S83.8X1A Sprain of other specified parts of right knee, initial encounter (principal); M25.561 Pain in right knee
CPT/HCPCS: 73721

== ENCOUNTER → 2025-06-06 | Outpatient (CLI) | payer BC, SELFPAY ==
--- NOTE | 2025-06-06 12:59 | BD_ITS ---
PROCEDURE: DEXA BONE DENSITY STUDY 06/06/2025 REASON FOR EXAM: F, age 60 y/o . Postmenopausal. TECHNIQUE: Procedure Code: BDDBD Modality: DX Procedure: DEXA BONE DENSITY STUDY COMPARISON: November 11, 2020. FINDINGS: BMD and T-SCORES Lumbar spine: 0.716 g/cm2, T-score -3.0 Levels: L1 through L4 Change from prior: Loss of 1.8%. Left femoral neck: 0.652 g/cm2, T-score -1.8 Femoral neck comparison data not recommended for monitoring change. Left total hip: 0.767 g/cm2, T-score -1.4 Change from prior: Improvement of 0.4%. Right femoral neck: 0.696 g/cm2, T-score -1.4 Femoral neck comparison data not recommended for monitoring change. Right total hip: 0.731 g/cm2, T-score -1.7 Change from prior: Loss of 2.6%. The World Health Organization has defined the following categories based on bone density: Normal bone density: T-score equal to or greater than -1.0 Osteopenia: T-score between -1.0 and -2.5 Osteoporosis: T-score equal to or less than -2.5 FRAX (or Comparable) Fracture Risk Assessment: 10 Year Probability of Fracture: Major Osteoporotic Fracture: 14% Hip Fracture: 1.8% (Note: FRAX is not to be reported in setting of normal range bone density, osteoporosis on DEXA, known history of osteoporosis, prior osteoporotic hip or vertebral fracture, or for any patient undergoing pharmacological treatment for bone loss.) The National Osteoporosis Foundation (NOF) recommends pharmacological treatment for patients with a FRAX 10-year risk of 3% or higher for a hip fracture, or 20% or higher for a major osteoporotic fracture, to prevent osteoporosis and reduce fracture risk. The patient does meet the pharmacological treatment recommendations for prevention of osteoporosis. BD/Dexa Bone Density Study IMPRESSION: OSTEOPOROSIS. Recommend follow-up as clinically warranted. Reading Location: [place] [address]
--- NOTE | 2025-06-06 13:14 | BI_ITS ---
EXAM: SCRN MAMM (CAD)W/ADENIKE BILAT DATE: 06/06/2025 CLINICAL HISTORY: F, Age 60 y/o , SCREENING History of aunt with breast cancer. TECHNIQUE: Procedure Code: BISMWCADBTOM Modality: MG Procedure: SCRN MAMM (CAD)W/ADENIKE BILAT COMPARISON: Prior exam(s) dated August 16, 2023.. FINDINGS: TISSUE DENSITY: The breasts are heterogeneously dense, which may obscure small masses. Bilateral Breast Mammographic Findings: No significant masses, calcifications or other abnormalities are identified. No suspicious masses, areas of developing architectural distortion, or suspicious calcifications. There has been no significant interval change. BI/SCRN MAMM (CAD)W/ADENIKE BILAT IMPRESSION: Stable bilateral screening mammogram. OVERALL FINAL ASSESSMENT BI-RADS 1: NEGATIVE. RECOMMENDATION: Routine annual follow-up in 1 Year Additional Recommendation none A letter with findings and recommendations will be mailed to the patient. Reading Location: [place] [address]
--- OUTSIDE RECORDS SUMMARY | 2025-06-06 15:30 | XMS RPT_ITS | CCD ---
Author Organization [facility] Team Providers Care Senior Technologist Name Role Phone Geo Madison Referring Unavailable Geo Madison Attending Unavailable Geo Madison Primary Care Unavailable Problems Problem Classification Problem Date Documented Da te Episodic/Chronic Other non-traumatic joint disorders (1 source) Pain in right knee; Translations: [Pain in right knee] Onset: 04-19-2025 Episodic Sprains and strains (1 source) Sprain of other specified parts of right knee, initial encounter; Translations: [Sprain of other specified parts of right knee, initial encounter] Onset: 04-19-2025 Episodic Results Test Name Value Interpretation Reference Range Facil ity Lower Ext Joint Only (Routin e)on 04-19-2025 Lower Ext Joint Only (Routine) [facility] [address] [place] [address] Lower Ext Joint Only (Routine) MR#: [id number] Acct: [id number] Name: ZHANE DUNN Rep #: [id number] : 1965 F 60 From: Tico Mora MD PCP: Geo Diamond PA-C Status: REG CLI Study: Lower Ext Joint Only (Routine) Date of Exam: 1 Exam# [id number] Ordering Dr: Geo Diamond PA-C PROCEDURE: LOWER EXT JOINT ONLY (ROUTINE) 04/19/2025 REASON FOR EXAM: PAIN RIGHT KNEE TECHNIQUE: Procedure Code: MRILEJ Modality: MR Procedure: LOWER EXT JOINT ONLY (ROUTINE) T1, T2, PD, multiplanar and multisequence images were obtained of the right knee without IV contrast administration. COMPARISON: COMPARISON : None FINDINGS: Bone Marrow: There is bone marrow edema in the posterior central tibia, deep to the PCL insertion. There is no visible displaced fracture. Cruciate ligaments: The anterior cruciate ligament shows edema and attenuation without laxity, grade 2 sprain. The posterior cruciate appears intact. Collateral ligaments: The medial collateral ligament appears intact. The lateral collateral ligaments appear intact. Menisci: There is no visible meniscus tear in the medial or lateral meniscus. Effusion: There is a moderate joint effusion. There is no Suarez's cyst. Cartilage: A fissure is noted in the central portion of the lateral patellar facet. 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 Soft Tissues: There is no soft tissue mass or cyst. Ligaments and Tendons: The distal quadriceps and patellar tendons appear intact. MRI/Lower Ext Joint Only (Routine) IMPRESSION: There is bone marrow edema in the posterior central tibia, deep to the PCL insertion. The anterior cruciate ligament shows edema and attenuation without laxity, grade 2 sprain. T Here is a moderate joint effusion. A fissure is noted in the central portion of the lateral patellar facet. 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 Reading Location: [facility] CC: ADAM Diamond Benefits Consulting Analyst: Signed Normal [facility] Basophil percentageon 2021 Cholesterol [Mass/Vol] 211 mg/dL <200 [facility] Work Phone: Comment on above: <200 mg/dL Desirable 200-240 mg/dL Borderline >240 mg/dL High Risk Triglyceride [Mass/Vol] 66 mg/dL <199 [facility] Work Phone: Comment on above: The drugs N-Acetylcy steine and Metamizole may falsely depress this assay.Serum Triglycerides Reference Interval Normal <150 mg/dL Borderline high 150 - 199 mg/dL High 200 - 499 mg/dL Very High > or = 500 mg/dL No Panel Informationon 04-13 Vitamin D 25-Hydroxy 32.4 ng/mL [facility] Work Phone: Comment on above: Vitamin D 25(OH) Sta tus Range Deficiency <20 ng/mL (50nmol/L) Insufficiency 20 - 30 ng/mL (50 - 75 nmol/L) Sufficiency 30 - 100 ng/mL (75 - 250 nmol/L) Toxicity >100 ng/mL (>250 nmol/L) Serum or plasma cholesterol in HDL measurement (mass/volume)on 04-13-2022 Cholesterol in HDL [Mass/Vol] 63 mg/dL >40 [facility] Work Phone: Comment on above: The drugs N-Acetylcy steine and Metamizole may falsely depress this assay. Reference Range HDL <40 mg/dL Low HDL Cholesterol HDL >or= 60 mg/dL High HDL Cholesterol Serum or plasma cholesterol in VLDL measurement (mass/volume)on 04-13-2022 Cholesterol in VLDL [Mass/Vol] 13 mg/dL 5-40 [facility] Work Phone: Serum or plasma low density lipoprotein (LDL) cholesterol measurement (mass/volume)on 04-13-2022 Cholesterol in LDL [Mass/Vol] 135 mg/dL 0-130 [facility] Work Phone: Encounters Encounter Date Encounter Type Care Provider Facility Start: 04-19-2025 ambulatory Geo Lara y:[facility] Start: 08-16-2023 End: 08-16-2023 ambulatory [facility] Work Phone: Start: 08-16-2023 End: 08-16-2023 Patient encounter procedure [facility] Work Phone: Start: 06-03-2022 End: 06-03-2022 [facility] Work Phone: Start: 06-03-2022 End: 06-03-2022 Patient encounter procedure [facility] Start: 05-27-2022 End: 05-27-2022 ambulatory [facility] Work Phone: Start: 05-27-2022 End: 05-27-2022 Patient encounter procedure [facility] Start: 04-13-2022 End: 04-13-2022 Patient encounter procedure [facility] Procedures Date Procedure Procedure Detail Performing Clinician Start: 08-16-2023 Screening mammography Start: 06-03-2022 Ultrasonography of breast Start: 05-27-2022 Screening mammography Plan of Treatment Date Care Activity Detail Author Start: 05-27-2022 Screening mammography BIANCAN KRISTIN M (CAD)W/ADENIKE LAMAAT [facility] Work Phone: Payers Date Payer Category Payer Self-pay [id number] 2025 Unknown [id number] Unknown [employer] [facility] [id number] Unknown [employer] [id number] Unknown [id number] Social History Date Type Detail Facility Tobacco smoking stat [facility] Unknown if ever smoked [facility] Work Phone: Start: 1965 Sex Assigned At Female [facility] Evaluation note Note Date & Type Note Facility Evaluation note No assessment information availa ble [facility] Work Phone: Chief Complaint and Reason [...] ized section and content) DATE CREATED AUTHOR 04/24/2025 [facility] FOR RECORDS PERTAINING TO PATIENTS WHO ARE [...] BE BASED ON THE PRIMARY CLINICAL RECORDS. [facility] provides no warranty or guarantee of the accuracy or completeness of information in this document.
== END | disposition home or self-care (01) ==
PROVIDERS: PCP Family Medicine; Referring Provider Family Medicine; Visit Provider Family Medicine
DX: Z12.31 Encounter for screening mammogram for malignant neoplasm of breast (principal); M81.0 Age-related osteoporosis without current pathological fracture; Z78.0 Asymptomatic menopausal state
CPT/HCPCS: 77063; 77067; 77080

== ENCOUNTER → 2025-06-13 | Outpatient (CLI) | payer BC, SELFPAY ==
[2025-06-13 11:41] LABS: AST(SGOT) 17 U/L (<=31); Alanine Aminotransfer ALT/SGPT 15 U/L (<=34); Albumin, Serum 4.2 g/dL (3.4-4.8); Alkaline Phosphatase 71 U/L (35-104); Anion Gap 9 (5-15); BUN 12 mg/dL (4-19); BUN/Creat Ratio 15.4 RATIO (10-20); Calcium,Total 9.0 mg/dL (7.6-11.0); Carbon Dioxide 26.7 mmol/L (21.0-32.0); Chloride 105 mmol/L (98-108); Cholesterol 223 mg/dL (<=200); Globulin 2.5 g/dL (2.2-4.2); Glucose 98 mg/dL (70-99); Low Density Lipoprotein Calc. 156 mg/dL; Potassium 4.3 mmol/L (3.3-5.1); Triglycerides 86 mg/dL; Very Low Density Lipoprotein 17 mg/dL (5-40); Vitamin D,25 Hydroxy 31.0 ng/mL (30-100); cholesterol:hdl ratio screen 4.26
[2025-06-13 22:40] LABS: Hematocrit 38.9 % (37-47); Hemoglobin 12.2 g/dL (12.0-15.0); Immature Granulocytes Count 0.010 X10^3/uL (0.0-0.0); Mean Corp Hgb Conc 31.4 g/dL (32-36); Mean Corpuscular Volume 96.8 fL (81-99); Mean Platelet Vol. 11.7 fl (6.2-12.0); NRBC Flagged by Analyzer 0 % (0-5); Platelet Count 234 K/mm3 (150-450); RBC Distribution Width CV 13.1 % (11.6-14.6); RBC Distribution Width SD 46.4 fl (35.1-43.9); Red Blood Count 4.02 M/mm3 (4.2-5.4); White Blood Count 4.2 K/mm3 (4.4-11.0)
== END | disposition home or self-care (01) ==
LOC: MFPLAB 09:09
PROVIDERS: PCP Family Medicine; Visit Provider Family Medicine
DX: M81.0 Age-related osteoporosis without current pathological fracture (principal); E78.00 Pure hypercholesterolemia, unspecified
CPT/HCPCS: 36415; 80053; 80061; 82306; 85025